=== PATIENT | male | born 1950 | race Caucasian/White ===

== ENCOUNTER 2018-09-29 11:32 | Outpatient (CLI) | payer MEDICARE, OTHER, SELFPAY ==
[2018-09-30 11:03] LABS: PSA, Screening 0.8 ng/ml (0-4.5)
== END 2018-09-29 11:52 ==
PROVIDERS: PCP Internal Medicine; Visit Provider Internal Medicine
DX: R35.1 Nocturia (principal)
CPT/HCPCS: 36415; 84153

== ENCOUNTER 2019-09-23 10:34 | Outpatient (CLI) | payer MEDICARE, OTHER, SELFPAY ==
[2019-09-23 12:51] LABS: Absolute Basophil Count 0.03 k/cumm (0.0-0.2); Absolute Eosinophil Count 0.15 k/cumm (0.0-0.7); Absolute Lymphocyte Count 1.15 k/cumm (1.2-3.4); Absolute Monocyte Count 0.42 k/cumm (0.11-0.7); Absolute Neutrophil Count 1.66 k/cumm (1.2-6.7); Basophils % 0.9; Eosinophils % 4.4; HGB 14.6 g/dL (13.5-17.5); Lymphocytes % 33.7; Mean Corpuscular Hemoglobin 30.8 pg (27.0-33.0); Mean Corpuscular Volume 90.7 fL (80-95); Mean Platelet Volume 10.9 fL (8.0-11.0); Monocytes % 12.3; Neutrophils % 48.7; Platelet Count 206 x1000/uL (130-400); RBC 4.74 m/cumm (4.50-6.00); RBC Distribution Width 12.2 % (11.8-14.1); White Blood Cell Count 3.41 k/cumm (4.4-10.8)
[2019-09-23 13:05] LABS: ALT 25 U/L (16-63); AST 17 U/L (15-37); Albumin 3.9 g/dL (3.4-5.0); Alkaline Phosphatase 55 U/L (46-116); Anion Gap 7.8 mmol/L (3-11); BUN 20 mg/dL (7-18); Bilirubin, Total 1.3 mg/dL (0.2-1.0); CO2 31.2 mmol/L (21.0-32.0); CREATININE 0.97 mg/dL (0.70-1.30); Calcium 9.1 mg/dL (8.5-10.1); Chloride 104 mmol/L (98-107); Glucose 79 mg/dL (74-106); Potassium 4.5 mmol/L (3.5-5.1); Sodium 143 mmol/L (136-145)
[2019-09-24 15:02] LABS: PSA, Screening 0.7 ng/mL (0.0-4.5)
== END 2019-09-23 10:54 ==
PROVIDERS: PCP Internal Medicine; Visit Provider Internal Medicine
DX: R50.9 Fever, unspecified (principal); R35.1 Nocturia; Z12.5 Encounter for screening for malignant neoplasm of prostate
CPT/HCPCS: 36415; 80053; 84153; 85025

== ENCOUNTER 2021-01-09 10:21 | Outpatient (CLI) | payer MEDICARE, OTHER, SELFPAY ==
--- NOTE | 2021-01-09 10:00 | DI.RAD_ITS ---
EXAM: XR KNEE LT 1V CLINICAL HISTORY: pain. TECHNIQUE: 2D digital imaging was performed. COMPARISON: CR LEFT KNEE 3 VIEW COMPLETE from 09/28/2013 FINDINGS: Single lateral view of the left knee performed with weight-bearing, compared to 09/28/2013. Degenerative changes appear to have further progressed. No prominent joint effusion seen. IMPRESSION: DATA REPOSITORY: RADIATION DOSE DELIVERED:
--- NOTE | 2021-01-09 10:00 | DI.RAD_ITS ---
EXAM: XR STANDING ALIGNMENT CLINICAL HISTORY: pain. TECHNIQUE: 2D digital imaging was performed. COMPARISON: CR LEFT KNEE 3 VIEW COMPLETE from 09/28/2013 FINDINGS: There is a moderate-advanced narrowing of the medial compartment of the left knee, somewhat similar t o 2013. There is a degenerative subarticular cyst again noted in the sub spinous tibial plateau whic h was also present in 2013. Lateral compartment of the left knee exhibits only mild degenerative zay nges and there are only mild degenerative changes noted in the opposite-right knee. Both hips appear unremarkable as do the ankles. No osseous lesions. IMPRESSION: Degenerative changes left knee. Similar in appearance to September 2013. DATA REPOSITORY: RADIATION DOSE DELIVERED:
== END 2021-01-09 10:22 | disposition home or self-care (01) ==
LOC: DIORS 10:22
PROVIDERS: PCP Nurse Practitioner; Referring Provider Nurse Practitioner; Visit Provider Student in an Organized Health Care Education/Training Program
DX: M17.12 Unilateral primary osteoarthritis, left knee (principal); M25.562 Pain in left knee
CPT/HCPCS: 20610; 99203; 73560; 77073; J1040

== ENCOUNTER → 2021-08-15 13:58 | Outpatient (BNVA) | payer MEDICARE, OTHER, SELFPAY | PROVIDERS: PCP Nurse Practitioner; Referring Provider Nurse Practitioner | DX: Z01.818 Encounter for other preprocedural examination (principal); M17.12 Unilateral primary osteoarthritis, left knee ==

== ENCOUNTER 2021-08-21 02:57 | Outpatient (CLI) | payer MEDICARE, OTHER, SELFPAY ==
[2021-08-21 10:02] LABS: HCT 43.3 % (40.0-50.0); HGB 14.3 g/dL (13.5-17.5); MCV 90.8 fL (80-95); MPV 10.3 fL (8.0-11.0); Platelet Count 212 10^3/uL (130-400); RBC 4.77 10^6/uL (4.36-5.78); RDW 11.8 % (11.8-14.1); RDW-SD 39.3 fL
[2021-08-21 10:59] LABS: Anion Gap 10.3 mmol/L (3-11); BUN 20 mg/dL (7-18); CO2 28.7 mmol/L (21.0-32.0); CREATININE 0.9 mg/dL (0.70-1.30); Calcium 9.3 mg/dL (8.5-10.1); Chloride 102 mmol/L (98-107); Glucose 78 mg/dL (74-106); Potassium 4.1 mmol/L (3.5-5.1); Sodium 141 mmol/L (136-145)
== END 2021-08-21 02:58 | disposition home or self-care (01) ==
LOC: LBO 02:57
PROVIDERS: PCP Nurse Practitioner; Visit Provider Student in an Organized Health Care Education/Training Program
DX: M17.12 Unilateral primary osteoarthritis, left knee (principal); Z01.818 Encounter for other preprocedural examination
CPT/HCPCS: 36415; 80048; 85027

== ENCOUNTER 2021-08-21 03:02 | Outpatient (CLI) | payer MEDICARE, OTHER, SELFPAY ==
[2021-08-21 12:43] LABS: Source Nasal/Nares
[2021-08-21 17:11] LABS: COVID-19 PCR Negative (Negative)
== END 2021-08-21 03:03 | disposition home or self-care (01) ==
LOC: LBO 03:02
PROVIDERS: PCP Nurse Practitioner; Visit Provider Student in an Organized Health Care Education/Training Program
DX: Z20.822 Contact with and (suspected) exposure to COVID-19 (principal)
CPT/HCPCS: 36415; 80048; 85027; 87635

== ENCOUNTER 2021-08-22 09:01 | Day surgery (SDC) | payer MEDICARE, OTHER, SELFPAY ==
[2021-08-22] VITALS (12 sets, daily range): BP systolic 105–158; BP diastolic 65–94; PULSE 62–96; RESP 13–16; TEMP 36.2–36.9; O2SAT 95–99; BMI 24.3
--- NOTE | 2021-08-22 07:30 | PDOC.DSDIS_ITS ---
Discharge Plan Disposition Patient Disposition: HOME Condition: Good Discharge Details Reason For Visit: Left TKA Attending Provider: Kong Villeda Primary Care Provider: Ximena Bustos Home Meds and New Rx's Prescriptions: New celecoxib [Celebrex] 200 mg capsule 200 mg PO BID Qty: 60 RF: 0 aspirin 81 mg tablet,delayed release (DR/EC) 81 mg PO BID Qty: 60 RF: 0 pantoprazole [Protonix] 40 mg tablet,delayed release (DR/EC) 40 mg PO DAILY Qty: 30 RF: 0 gabapentin 300 mg capsule 300 mg PO QHS Qty: 14 RF: 0 acetaminophen 500 mg capsule 1,000 mg PO Q8H PRN PRNQty: 90 RF: 0 oxycodone 5 mg tablet 5 mg PO Q4H PRNQty: 18 RF: 0 Continued omega-3 fatty acids [Fish Oil Concentrate] 1,000 mg capsule 1,000 mg PO DAILY RF: 0 multivitamin Tablet 1 tab PO DAILY RF: 0 Discharge Instructions Additional Instructions: Total Knee Discharge Instructions Activity: The most important activity is to walk. You should try to take short walks a few times a day. It is important that when resting you work on keeping the knee straight. Avoid putting a pillow behind the knee as this will encourage flexion. Work on range of motion exercises as provided by Physical Therapy. If you have the [employer] bike coming, this will be your primary tool for exercise after the knee replacement. You should use it and follow the directions for the knee. Utilize the other exercises sparingly based on your symptoms. - Start outpatient physical therapy within 2 weeks. - You should wear the LILY hose on both legs for 2 weeks. You may remove these at night. You may also use any compression sock in place of the LILY hose. - Utilize [employer] to review exercises, see videos on exercises and obtain basic information pertaining to your surgery and your recovery. Dressing: Remove the Damian wrap by 2 days after your surgery and put on the LILY stocking given to you from the hospital. Keep the surgical dressing (underneath the DAMIAN wrap) in place for at least one week. After the first week it may be removed and replaced with light gauze and tape or nothing. The wound and dressing may get wet after 3 days but avoid soaking the dressing or otherwise it will need to be changed. Many people prefer covering the dressing with cling wrap (saran wrap) to minimize it from getting soaked. If it gets wet, just pat dry. If it starts to peel off then it will need to be changed. Medications: - You should take Tylenol and anti-inflammatory Celebrex as your primary pain control medications. If the Celebrex is too expensive or not covered, please call the office for another alternative (Advil/Ibuprofen or Naproxen/Aleve) - You have been prescribed a stronger pain medication Oxycodone for breakthrough pain, take as needed as prescribed. - You have also been prescribed a stomach acid reduction agent Pantoprozole to help reduce stomach acid and reflux. - You have been prescribed Gabapentin to take at night for restlessness and nerve pain. - You will be taking Aspirin 81mg twice a day for DVT prevention unless instr ucted otherwise. - If you have constipation you should take Colace or Miralax (both [id number]). It takes most people 3-4 days to have a bowel movement. Follow-up: 2 weeks If you have any acute concerns or questions, please do not hesitate to contact the office at [phone]. You may contact Dr. Villeda with any questions after hours through the hospital at [phone] or on his cell phone at [phone]. Referrals: Kong Villeda MD [ [facility] STAFF PHYSICIAN] - Equipment/Supplies: Walker Activity:: Activity as Tolerated Remove Dressings/Wound Care:: Do Not Remove Shower/Bathe:: 72 hours Diet:: As Tolerated Discharge Orders Discharge Orders: Discharge Order (Routine); Ordered 08/22/21 Ordered By: Corine Perez DS: Diagnosis Discharge Diagnosis (1) Osteoarthritis of left knee: Status: Chronic
--- NOTE | 2021-08-22 08:10 | W.ANESPRE ---
General Info Date of Service Date Performed: 08/22/21 Height: 5 ft 10 in Weight: 76.884 kg Body Mass Index (BMI): 24.3 Surgical Procedure: Operation Date: 08/22/21 11:25 Proposed Procedures Side Surgeon p Knee Total Arthroplasty Left Kong Villeda MD Meds Allergies and Home Medications Allergies Allergy/AdvReac Type Severity Reaction Status Date / Time No Known Allergies Allergy Verified 08/22/21 09:25 Home Medication Medication Instructions Recorded multivitamin 1 tab PO DAILY 09/23/19 omega-3 fatty acids 1,000 mg 1,000 mg PO DAILY 09/23/19 capsule acetaminophen 1,000 mg PO Q8H PRN PRN #90 cap 08/22/21 aspirin 81 mg PO BID #60 tab 08/22/21 celecoxib [Celebrex] 200 mg PO BID #60 cap 08/22/21 gabapentin 300 mg PO QHS #14 cap 08/22/21 oxycodone 5 mg PO Q4H PRN #18 tab 08/22/21 pantoprazole [Protonix] 40 mg PO DAILY #30 tab 08/22/21 Current Visit Medications: Current Medications Generic Name Dose Route Start Last Admin Trade Name Freq PRN Reason Stop Dose Admin Acetaminophen 1,000 mg 08/22/21 06:00 Acetaminophen 500 Mg Tab PO 08/22/21 16:00 PREOP LUKE Acetaminophen 1,000 mg 08/22/21 09:00 Acetaminophen 500 Mg Tab PO TID LUKE Aspirin 81 mg 08/22/21 09:00 Aspirin E.C. 81 Mg Tabec PO BID LUKE Celecoxib 400 mg 08/22/21 06:00 Celecoxib 200 Mg Cap PO 08/22/21 16:00 PREOP LUKE Celecoxib 200 mg 08/22/21 09:00 Celecoxib 200 Mg Cap PO BID LUKE Docusate Sodium 100 mg 08/22/21 07:30 Docusate Sodium 100 Mg Cap PO BID PRN PRN Constipation Gabapentin 300 mg 08/22/21 06:00 Gabapentin 300 Mg Cap PO 08/22/21 16:00 PREOP LUKE Gabapentin 300 mg 08/22/21 22:00 Gabapentin 300 Mg Cap PO HS LUKE Hydromorphone HCl 0.5 mg 08/22/21 07:30 Hydromorphone 2 Mg/Ml Vial IVP Q2H PRN PRN Tranexamic Acid 1,000 mg/ 60 mls @ 360 mls/hr 08/22/21 06:00 Sodium Chloride IVPB 08/22/21 16:00 PREOP LUKE Tranexamic Acid 1,000 mg/ 60 mls @ 360 mls/hr 08/22/21 06:00 Sodium Chloride IVPB 08/22/21 16:00 DIRECTED LUKE Ringer's Solution 1,000 mls @ 80 mls/hr 08/22/21 06:00 IV 09/20/21 23:59 INFUSION LUKE Cefazolin Sodium/Dextrose 2 gm in 50 mls @ 100 mls/hr 08/22/21 06:00 Ancef Duplex IVPB 08/22/21 16:00 PREOP LUKE Cefazolin Sodium/Dextrose 1 gm in 50 mls @ 100 mls/hr 08/22/21 18:00 Ancef Duplex IVPB 08/23/21 10:29 Q8H LUKE IV Miscellaneous Supplies 1 each 08/22/21 06:00 Iv Access IV 09/20/21 23:59 DIRECTED LUKE Ondansetron HCl 4 mg 08/22/21 07:30 Ondansetron 4 Mg/2 Ml Vial IVP Q6H PRN PRN Nausea Oxycodone HCl 0 mg 08/22/21 07:30 Oxycodone 5 Mg Tab PO Q3H PRN PRN Pain Pantoprazole Sodium 40 mg 08/22/21 08:00 Pantoprazole 40 Mg Tabcr PO DAILY@0730 LUKE Sodium Chloride 0 ml 08/22/21 06:00 Normal Saline Flush 10 Ml Syr IV 09/20/21 23:59 PRN PRN Sodium Chloride 0 ml 08/22/21 06:00 Normal Saline 10 Ml Vial IJ 09/20/21 23:59 DIRECTED PRN Sterile Water 0 ml 08/22/21 06:00 Water,Injection,Sterile 10 Ml Vial IJ 09/20/21 23:59 DIRECTED PRN PFSH Active Problems Active Problems: Problem Status Onset Code Right shoulder pain M25.511 Osteoarthritis of left knee M17.12 Cardiac murmur R01.1 Sciatica M54.30 Medical History Active Problem List Right shoulder pain (Acute) Osteoarthritis of left knee (Chronic) Cardiac murmur (Acute) Sciatica (Acute) Medical History Diverticulosis of colon without diverticulitis Surgical History Surgical History Colonoscopy - MAC (10/23/11) Status post arthroscopy of left knee x2 Vasectomy Tobacco Smoking/Tobacco Use Status: Never Passive smoking exposure: Yes Second hand exposure: Yes Alcohol Alcohol Intake: current Alcohol intake frequency: 0-2 drinks per day Alcohol type: beer Substance Use Substance use: Never Substance use type: does not use Vital Signs and Lab Results Vital Signs Most Recent Vital Signs in EMR: Temp Pulse Resp BP Pulse Ox 36.9 C 82 16 142/94 H 99 08/22/21 09:10 08/22/21 09:10 08/22/21 09:10 08/22/21 09:10 08/22/21 09:10 Lab Results Blood Type / Crossmatch: No Data to Display Complete Blood Count: White Blood Count 4.00 10^3/uL (4.4-10.8) L 08/21/21 09:49 08/21/21 Red Blood Count 4.77 10^6/uL (4.36-5.78) 08/21/21 09:49 08/21/21 Hemoglobin 14.3 g/dL (13.5-17.5) 08/21/21 09:49 08/21/21 Hematocrit 43.3 % (40.0-50.0) 08/21/21 09:49 08/21/21 Platelet Count 212 10^3/uL (130-400) 08/21/21 09:49 08/21/21 Complete Metabolic Panel: Sodium Level 141 mmol/L (136-145) 08/21/21 09:49 08/21/21 Potassium Level 4.1 mmol/L (3.5-5.1) 08/21/21 09:49 08/21/21 Chloride Level 102 mmol/L (98-107) 08/21/21 09:49 08/21/21 Carbon Dioxide Level 28.7 mmol/L (21.0-32.0) 08/21/21 09:49 08/21/21 Blood Urea Nitrogen 20 mg/dL (7-18) H 08/21/21 09:49 08/21/21 Creatinine 0.9 mg/dL (0.70-1.30) 08/21/21 09:49 08/21/21 Estimated GFR/1.73 m2 >= 60.00 (mL/min/1.73m2) 08/21/21 09:49 08/21/21 Calcium Level 9.3 mg/dL (8.5-10.1) 08/21/21 09:49 08/21/21 Glucose Level 78 mg/dL (74-106) 08/21/21 09:49 08/21/21 Liver Function Panel: No Data to Display Coagulation Panel: No Data to Display Cardiac Panel: No Data to Display Arterial Blood Gas: No Data to Display Venous Blood Gas: No Data to Display Pancreas Panel: No Data to Display Thyroid Panel: No Data to Display Infectious Disease: Coronavirus (COVID-19)(PCR) Negative (Negative) 08/21/21 10:50 08/21/21 Coronavirus 2019 Source Nasal/Nares 08/21/21 10:50 08/21/21 Blood Cultures: No Data to Display Toxicology Panel: No Data to Display Imaging and Studies Imaging and Studies Study information below may be from another EMR and interpreted by another provider. Please see original notes in EMR for more complete details. EKG Summary: 08/06: sinus rhythm, multple PVCs, prob LVH. Anesthesia Assessment and Plan Anesthesia History Personal History: No History of Anesthesia Complications Family History: No Family History of Anesthesia Complications Exercise Tolerance Exercise Tolerance: Metabolic Equivalents>4 Pertinent Negatives Pertinent Negatives: No Symptoms of GERD, No Major Cardiovascular Symptoms or Complaints and No Major Pulmonary Symptoms or Complaints Cardiac & Pulmonary Exam Cardiac Exam: Normal S1/S2 Heart Sounds (Unable to auscultate heart murmur) Pulmonary Exam: Clear Bilateral Breath Sounds Implantable Cardiac Device Does patient have a Pacemaker or an ICD?: No Airway Exam Known Difficult Airway: No Mallampati Class: 1 Mouth Opening: Normal (> 3cm) Thyromental Distance: Greater than 3 cm Neck Range of Motion: Full ROM Neck Circumference: Normal Teeth Condition: Normal Dentition ASA Classification ASA Score: ASA 2 Emergency Case?: No NPO Status NPO Status: NPO Clears >2 hours, Solids >8 hours Anesthesia Plan Resuscitation Status: Full Code Anesthesia Technique: Spinal Anesthesia Airway Planned: Natural Airway Pain Management: Surgeon and patient request nerve block Monitors Used: Standard Monitors Preoperative Comments:: 70 yo male for TKA. Sig PMHx: occ EtOH, denies major health history problems.
[2021-08-22] MEDS: Acetaminophen 500 MG TAB 1000 MG PO (09:33)
[2021-08-22] MEDS: Gabapentin 300 MG CAP PO (09:33)
[2021-08-22] MEDS: Celecoxib 200 MG CAP 400 MG PO (09:33)
[2021-08-22] MEDS: Lactated Ringers 1,000 ML 80 ML IV (09:52)
--- NOTE | 2021-08-22 10:19 | W.ANESNERVE ---
Nerve Block Single Injection Procedure Date and Time Date Performed: 08/22/21 Procedure Start: 10:05 Location Where Procedure Performed Procedure Location: Day Surgery Unit Reason Performed: Postoperative Analgesia Requesting Provider: Christiana Timeout Performed Timeout Performed: Yes Monitoring Used ECG, Blood Pressure, SpO2 and See EMR for corresponding vital signs Sterility Sterility: Hand Hygiene, Surgical Cap, Surgical Mask, Sterile Gloves, Eye Protection and Chlorhexidine Sedation Given During Procedure Sedation Given (Indicate Dose Given): No Sedation given Patient Mental Status Patient Mental Status: Awake Nerve Block 1st Nerve Block: Laterality: Left Block Type: Adductor Canal Needle / Catheter Used: 100mm SonoPlex II Local Anesthetic Bolus (Indicate Dose Given): Injected in 3-5ml increments after negative blood aspiration and Bupivacaine 0.375% Dose:: 10mL Additives (Indicate Dose Given): None Ultrasound: Sterile probe cover and gel used Ultrasound Image Saved?: Yes Nerve Stimulator: Not Used Paresthesia: None Procedure Tolerated: No Complications Procedure Outcome: Successful Performed By: Shannon Live
[2021-08-22] MEDS: ceFAZolin 2 GM/50 ML BAG IVPB (10:21)
[2021-08-22] MEDS: Bupivacaine 0.25% Pres-Free 30 ML VIAL (10:51)
[2021-08-22] MEDS: Ketorolac 30 MG/ML VIAL (10:52)
--- NOTE | 2021-08-22 12:16 | W.PM.OP ---
Date of service: 08/22/21 Time of Service: 12:17 Operative Note Operative Note DATE OF PROCEDURE: 08/22/21 PRE-OP DIAGNOSIS: Left Knee Osteoarthritis POST-OP DIAGNOSIS: same PROCEDURE: Left Total Knee Replacement SURGEON: Kong Villeda UNDERGROUND MINE MACHINERY MECHANIC: Corine Perez ANESTHESIA TYPE: Spinal Refer to Anesthesia Record ESTIMATED BLOOD LOSS: 300 PATHOLOGY: none sent TOURNIQUET TIME: 0 COMPLICATIONS: None Patient was transported to: PACU Patient's condition: stable Implants: 1. Depuy Attune Cementless Cruciate Retaining Femoral Component, Size 6 2. Depuy Attune Cementless Rotating Platform Tibial Component, Size 6 3. Depuy Attune 6x5mm CR/RP Poly 4. Depuy Attune Patellar Component, Size 41mm Indications: I have seen Norman in clinic for symptoms of knee arthritis, confirmed with radiographic findings. He has exhausted nonoperative methods and was having significant limitations in daily function and desired better function and less pain. I discussed the technical details of a knee replacement. I explained the risks of the procedure to include, but not limited to, bleeding, infection, pain, stiffness, fracture, damage to nerves and vessels, damage to muscles and tendons, loosening, need for repeat procedure, blood clot and cardiopulmonary demise. Despite these risks, Norman elected to proceed. Findings: There was significant signs of arthritis throughout the knee, mostly medial. There were large impinging osteophytes about the posterior-medial tibia. Procedure Description: Norman was greeted in the preoperative holding area where the correct side was identified and marked. The consent was reviewed with the patient and signed. The history and physical was updated. All questions were answered. Preoperative medications were administered: Acetaminophen 1000mg, Celebrex 400mg, and Gabapentin 300mg. An adductor canal block was then administered by the anesthesia team in the PACU. He was taken back to the operating room. A spinal anesthestic was then administered. The patient was placed into the supine position on the operating room table. A nonsterile tourniquet was placed high onto the leg but only used for cementing. Posts were placed for positioning during the procedure. All bony prominences were well padded. Prophylactic antibiotics in the form of Cefazolin were administered. 1g of Tranxemic Acid was given intravenously within 30 minutes of incision. The left leg was then prepped with Chloraprep and draped in a standard fashion with impervious stockinette. A second prep with Chloraprep was performed prior to application of Iodine impregnated skin protection. A timeout to confirm correct identity, side and site, procedure, allergies, anesthesia, and medical concerns was performed. With the knee in some flexion, a midline incision was made overlying the knee. Full thickness skin flaps were raised once the extensor mechanism was encountered. These were raised medially and laterally. Any bleeding was controlled with electrocautery. Once the extensor mechanism was fully exposed, a medial parapatellar arthrotomy was performed in a flexed position. All bleeding from the arthrotomy and the geniculate arteries was coagulated. A medial subperiosteal peel was performed with electrocautery to the midcoronal plane. The fat pad was removed while keeping the patellar tendon protected. The anterior distal femur synovium was removed for later visualization. The ACL and PCL were resected and the anterior horn of the lateral meniscus was transected. The knee was then flexed with the patella everted. Large osteophytes from the tibia were removed. Large osteophytes from the femur were removed. Using a step drill, and based on preoperative templating, the femoral canal was entered. This was done with a step drill without any difficulty. The intramedullary distal femoral cut guide was inserted, set to a 5 degree valgus cut and 8mm cut thickness. The distal femoral cut guide was then held in position and pinned. With the soft tissues protected, the distal cut was performed. This was passed over a few times to ensure a planar cut. I then turned attention to the tibia. The extramedullary guide was placed onto the leg. The distal aspect was slid medial to adjust for position of center of ankle and stay in line with shaft of the tibia. Approximately 3-5 degrees of posterior slope was kept in the proximal cutting guide. The center of the guide was aligned with the PCL. The stylus was used to assess cut thickness. The medial side, most involved side, was set for a 3mm cut. This was then held in position and pinned into place with 2 additional pins and a cross pin for stability. The medial and lateral collateral ligaments were protected and the cut was performed. With this completed, it was assessed and noted to be of appropriate dimensions. The guide was removed. A spacer block was inserted and the knee was brought into extension. The 5mm spacer block provided full extension, without hyperextension and with stability of both the medial and lateral collateral ligaments was assessed. The pins from the femur and the tibia were then removed. The distal femur was then sized. The anterior stylus was placed onto the lateral ridge of the anterior femur. This indicated a size 6 femur. The external rotation of the guide was adjusted to 3 degrees to match the epicondylar axis, perpendicular to Malathi?s line. The 4-in-1 cutting guide was the placed. The posterior medial femur cut was evaluated and appeared of good thickness. The spacer block was inserted underneath the cutting guide and stability was confirmed in 90 degrees of flexion. An mckenzie wing was used to confirm appropriate position of the anterior cut to avoid notching. This cutting guide was ensured to be flush on the cut surface and then pinned into place with headed pins. While protecting the soft tissues, quad tendon, and collateral ligaments, the anterior and posterior cuts were performed with a saw. The central two pins were removed and the posterior and anterior chamfers were cut next. The notch-cutting guide was placed. This was pinned to lateralize the femoral component as much as possible while keeping it flush on the cut surface. This was then pinned into position. A reciprocating saw was used to make the notch cut. A rasp smoothed the cut surfaces. The medial and lateral menisci were removed. A trial femoral component was then inserted, impacted down to the cut surfaces, and the lug holes were drilled. A provisional trial tibial component was placed and the knee was brought through range of motion. There was noted to be excellent extension and flexion. There was no significant instability. The patella was tracking without thumbs. A size 5mm polyethylene component provided the best range of motion and stability with less than 2mm gapping with medial and lateral stress and full extension without significant hyperextension. The tibial cut surface was fully exposed. The tibia was then sized as a 6. The tibia had been previously marked during trialing to correspond to the center of the tibial component to help with rotation. The trial was aligned to this jose, approximately rotated to the medial 1/3rd of the tibial tubercle. The trial was pinned into place. The tibia was prepared with a reamer and a keel punch and lug holes. The knee was then brought into extension and the patella was measured as 31mm. Using the patellar clamp and cut guide, this was resected to a flat surface with at least 13mm of thickness remaining. The size 41 patella fit the best. This was oriented and then clamped into position. The lugs were drilled. The trial components were removed. The final components were opened on the back table. The periosteal and capsular tissues, especially posteriorly, around the knee were then systematically injected with a periarticular cocktail consisting of 50cc 0.25% Marcaine, 30mg Ketorolac, 20cc of Exparal and 50cc of injectable saline. The knee was thoroughly irrigated with a pulse lavage and dried. Irrisept was also used to irrigate the tissues. On the back table, with the implants opened, the cement was mixed. One batch of high viscosity cement was prepared with vacuum assistance. After the cement was ready a small amount was placed on the cut surface of the patella and the patellar button was clamped into position and held. While the cement was hardening, the cementless knee components were placed. Starting with the tibial component, the tibia was subluxed anteriorly and the lug holes of the component were lined up. The tibia was then impacted with an impactor and mallet until the tibial component was in contact with the tibia. The final polyethylene component was inserted. Then, the femoral component was inserted. The lug holes were aligned and the component was impacted into position. The knee was irrigated with Irrisept chlorhexadine solution. This was allowed to sit in the knee for 3 minutes. After the cement had finally cured, approximately 15min, the clamp was removed from the patella and the knee was taken through range of motion. The patella was tracking with a no-thumbs technique. The capsule was then reapproximated with a No. 1 Vicryl at multiple locations. The capsule was finally closed with a No. 2 Stratafix, barbed suture. The second dosing of 1g TXA was started. Deep tissues were then reapproximated with 0 Vicryl and 2-0 Vicryl. The skin was closed with a running 3-0 Monocryl in a subcuticular fashion. This was reinforced with skin glue. A Mepilex silver dressing was applied along with a [id number] HAL wrap. A CryoCuff was applied. Norman was transferred to the hospital bed without difficulty an suffering no apparent complication. Norman has a good prognosis. Physical therapy will start today and without restrictions, weight-bearing as tolerated. Aspirin 81mg BID will be used for DVT prophylaxis.
[2021-08-22] MEDS: fentaNYL 100 MCG/2 ML VIAL IVP ×2 (12:50→12:55)
--- NOTE | 2021-08-22 13:04 | W.ANESPOSTOP ---
Postoperative Evaluation Date, Time and Location Date Performed: 08/22/21 Time Performed: 13:05 Patient Location: PACU Vital Signs Most Recent Imported Vital Signs: Most Recent Vital Signs Temp Pulse Resp BP Pulse Ox 36.5 C 62 16 127/80 97 08/22/21 12:55 08/22/21 12:55 08/22/21 12:55 08/22/21 12:55 08/22/21 12:55 Pain Score Most Recent Pain Score: Most Recent Pain Score Pain Level 5 08/22/21 12:55 Assessment Mental Status: Awake (Alert & Oriented to Patient Baseline) Airway and Respiratory Function: Patent airway with normal (patient baseline) respiratory exam Cardiovascular Function: Hemodynamically Stable Hydration Status: Adequately Hydrated Nausea & Vomiting: No Nausea or Vomiting Pain: Pain is tolerable per patient Peripheral Nerve Block: Regional nerve block not resolved at time of post operative discharge
--- NOTE | 2021-08-22 14:10 | PT.INIE ---
Date of service: 08/22/21 Time of Service: 14:10 PT Notes Visit Reasons: Left TKA Physical Therapy Day Surgery Initial Evaluation Date: 08/22/2021 Referring Doctor: HOWARD Grigsby PT Orders: PT CONSULT: Status post Ortho surgery Precautions: WBAT on left LE with AD. Patient Profile/Admitting Diagnosis: Norman is a 70-year-old male with osteoarthritis of the left knee and is status post left total knee arthroplasty on postoperative day 0. PMHX: Active Problem List Right shoulder pain (Acute) Osteoarthritis of left knee (Chronic) Cardiac murmur (Acute) Sciatica (Acute) Medical History Diverticulosis of colon without diverticulitis Surgical History Colonoscopy - MAC (10/23/11) Status post arthroscopy of left knee x2 Vasectomy Social History/Home Situation: Lives with in a private home with 10 steps to enter through the garage with a rail on the right side going up. Independent with all aspects of ADLs prior to surgery. Retired forester. Equipment Owned/DME: None Subjective: Agreeable to PT consult. Reports mildly in the left knee. Complained of fatigue right after ambulation activity. Objective: General Observation: Supine on stretcher. HAL wraps to left LE. Cryo/Cuff to left knee. IV in right UE. LILY stocking on the right leg. Mental Status: Alert and oriented x4 Pain: 1?2/10 pain in the left knee. ROM: Right Lower Extremity: Hip flexion WFL. Hip abduction WFL. Knee flexion WFL. Ankle dorsiflexion WFL. Ankle plantarflexion WFL. Left Lower Extremity: Hip flexion WFL. Hip abduction WFL. Knee flexion 20 degrees to 90 degrees. Knee extension -20 degrees ankle dorsiflexion WFL. Ankle plantarflexion WFL. Strength: Right Lower Extremity: Hip flexors 5/5. Hip abductors 5/5. Knee flexors 5/5. Knee extensors 5/5. Ankle dorsiflexors 5/5. Ankle plantarflexors 5/5. Left Lower Extremity:Hip flexors 4/5. Hip abductors 4/5. Knee flexors 3-/5. Knee extensors 3-/5. Ankle dorsiflexors 5/5. Ankle plantarflexors 5/5. Sensation: Denies numbness and tingling throughout B LE. Intact as to pain and light pressure in bilateral lower extremities. Bed Mobility/Transfers: Supine to sit supervision Sit to stand standby assist Stand to sit standby assist Bed to chair standby assist Gait: Instructed patient with level surface ambulation of 150 feet using front wheeled walker with step through gait pattern requiring only standby assist with report of mild ache on the left knee and fatigue at end of activity. No LOB. No SOB. Denies chest pain, headache, and lightheadedness throughout session. Nurse Corine providing wheelchair follow for safety. Stairs: Negotiated 6 x 4 inch steps and 4 x 6 inch steps while holding onto 1 rail and using a single-point cane with the other hand requiring step- to gait pattern and contact-guard assist of PT. Nurse Pool providing standby assist for safety. Balance: Static Sitting: Normal Dynamic Sitting: Normal Static Standing: Fair Dynamic Standing: Fair Special Tests: Mobility Limitations Standardized Measure [facility] 6 clicks Basic Mobility Inpatient Short Form: Raw Score: 23 CMS Score: 11% deficit Informed Consent/Education: Patient instructed in purpose of PT consult. Education and training on initial set of exercises that can be done at home have been completed with patient, also advised about maximizing use of postoperative exercises on the [employer] deanna on his smartphone. Assessment: Neuro requires the use of a front wheeled walker for all mobility ADL performance to reduce fall risk and maximize independence. He will have the support of his Angel as he recovers. Patient presents with clinical signs and symptoms consistent with current/admitting diagnoses that have resulted to mobility limitations, gait instability, and postoperative weakness as demonstrated by the following impairment level findings: 1. Decreased strength to left knee major muscle groups 2. Impaired standing balance 3. Limitation of joint range of motion in left knee Impairments are contributing to the following functional limitations: 1. Inability to safely ambulate without assistive device 2. Increase completion time for mobility ADL performance 3. Increased fall risk Patient is assessed as a 84383 moderate complexity based on the following: History: 62-year-old male with impairment level findings, functional limitations, and past medical history as indicated above Examination: Demonstrable impairment in strength, balance, and mobility level with underlying impairments and functional limitations as documented above Presentation: Evolving Decision Makin moderate complexity Goals: N/A. PT evaluation and 1-2 treatment sessions only for functional mobility training using recommended AD and for HEP instruction. Plan of Care/Treatment Plan: N/A. PT evaluation and 1-2 treatment session only for functional mobility training using recommended AD and for HEP instruction. DISCHARGE RECOMMENDATIONS: [] Home with no services [] [X] Home with services. Home when medically cleared by orthopedic surgeon. Outpatient services to facilitate to premorbid independent mobility level in the community without an assistive device. [] Home with outpatient PT [] [] SNF for continued rehabilitation [] [] Sports Doctor Care [] [] SNF versus LTC based on ability to participate and progress [] TREATMENT CODE/TIME: 9716 2 x 20 minutes, 64232 x 23 minutes beginning at 14:10 PM. Thank you for the opportunity to participate in the care of this patient.
== END 2021-08-22 15:41 | disposition home or self-care (01) ==
LOC: SUR 09:01
PROVIDERS: PCP Nurse Practitioner; Visit Provider Student in an Organized Health Care Education/Training Program
PROC: (CPT 27447; principal; 2021-08-22 11:15)
DX: M17.12 Unilateral primary osteoarthritis, left knee (principal)
CPT/HCPCS: 27447; 76942; 97162; 97530; J0690; J1100; J1885; J2405; J3010

== ENCOUNTER 2021-09-04 15:02 | Outpatient (CLI) | payer MEDICARE, OTHER, SELFPAY ==
--- NOTE | 2021-09-04 13:45 | DI.RAD_ITS ---
Exam(s) XR KNEE LT 1V XR STANDING ALIGNMENT EXAM: XR STANDING ALIGNMENT CLINICAL HISTORY: s/p TKA. TECHNIQUE: 2D digital imaging was performed of the left knee. Five images were obtained. Leg lengt h and lateral left knee views were obtained. COMPARISON: CR XR STANDING ALIGNMENT from 01/09/2021 CR XR KNEE LT 1V from 01/09/2021 FINDINGS: BONES: Mild degenerative changes are seen in the hips. The right knee is well maintained. There is a left total knee replacement. The orthopedic hardware appears in good position. There is an enthe sophyte at the superior patella. The ankles are well maintained. There is no significant leg length discrepancy. SOFT TISSUE: Atherosclerosis is present. There is soft tissue swelling anterior to the left knee. IMPRESSION: Left total knee replacement. DATA REPOSITORY: RADIATION DOSE DELIVERED:
== END 2021-09-04 15:03 | disposition home or self-care (01) ==
LOC: DIORS 15:03
PROVIDERS: PCP Nurse Practitioner; Referring Provider Nurse Practitioner; Visit Provider Student in an Organized Health Care Education/Training Program
DX: M17.12 Unilateral primary osteoarthritis, left knee (principal); Z47.1 Aftercare following joint replacement surgery; Z96.652 Presence of left artificial knee joint
CPT/HCPCS: 73560; 77073

== ENCOUNTER 2021-09-07 11:58 | Outpatient (CLI) | payer MEDICARE, OTHER, SELFPAY ==
--- NOTE | 2021-09-07 11:15 | DI.US_ITS ---
Exam(s) US LOWER EXTREMITY VENOUS LT EXAM: US LOWER EXTREMITY VENOUS LT CLINICAL HISTORY: ? DVT M79.605 PAIN LT LEG. TECHNIQUE: Lower extremity venous ultrasound performed using grayscale, color-flow, and spectral Do ppler analysis. COMPARISON: CR XR KNEE LT 1V from 01/09/2021 CR XR KNEE LT 1V from 09/04/2021 FINDINGS: The common femoral, femoral and popliteal veins demonstrate normal compressibility, augmentation, and color Doppler. The posterior tibial veins are patent. No saphenous vein thrombosis or other superfi cial venous thrombosis is seen. There is a complex Liang's cyst measuring 4.6 x 2.1 cm. IMPRESSION: Complex Liang's cyst.. No evidence of DVT. DATA REPOSITORY:
== END 2021-09-07 12:18 ==
PROVIDERS: PCP Nurse Practitioner; Visit Provider Student in an Organized Health Care Education/Training Program
DX: M79.605 Pain in left leg (principal); M71.22 Synovial cyst of popliteal space [Baker], left knee
CPT/HCPCS: 93971

== ENCOUNTER → 2021-10-02 14:56 | Outpatient (BNVA) | payer MEDICARE, OTHER, SELFPAY | PROVIDERS: PCP Nurse Practitioner; Referring Provider Nurse Practitioner | DX: Z47.1 Aftercare following joint replacement surgery (principal); M17.12 Unilateral primary osteoarthritis, left knee; Z96.652 Presence of left artificial knee joint ==

== ENCOUNTER 2021-11-02 02:39 | Outpatient (CLI) | payer MEDICARE, OTHER, SELFPAY ==
[2021-11-02 10:31] LABS: Calculated LDL 105 mg/dL (<100); Cholesterol 177 mg/dL (<200); HDL Cholesterol 60 mg/dL (40-60); Triglyceride 61 mg/dL (<150)
[2021-11-02 22:31] LABS: PSA, Screening 0.8 ng/mL (0.0-4.5)
== END 2021-11-02 02:40 | disposition home or self-care (01) ==
LOC: LBO 02:39
PROVIDERS: PCP Nurse Practitioner; Visit Provider Nurse Practitioner
DX: Z13.6 Encounter for screening for cardiovascular disorders (principal); R97.20 Elevated prostate specific antigen [PSA]; Z12.5 Encounter for screening for malignant neoplasm of prostate
CPT/HCPCS: 36415; 80061; 84153

== ENCOUNTER → 2021-11-13 13:44 | Outpatient (BNVA) | payer MEDICARE, OTHER, SELFPAY | PROVIDERS: PCP Nurse Practitioner; Referring Provider Nurse Practitioner; Visit Provider Student in an Organized Health Care Education/Training Program | DX: Z96.652 Presence of left artificial knee joint (principal); M17.12 Unilateral primary osteoarthritis, left knee ==

== ENCOUNTER → 2022-08-14 14:23 | Outpatient (BNVA) | payer MEDICARE, OTHER, SELFPAY | PROVIDERS: PCP Nurse Practitioner Family; Referring Provider Nurse Practitioner; Visit Provider Surgery | DX: Z12.11 Encounter for screening for malignant neoplasm of colon (principal) ==

== ENCOUNTER 2022-08-20 09:39 | Day surgery (SDC) | payer MEDICARE, OTHER, SELFPAY ==
--- NOTE | 2022-08-20 06:40 | W.COLOREPORT ---
Date of service: 08/20/22 Time of Service: 12:16 Colonoscopy Report Date of procedure: 08/20/22 Pre-op diagnosis general: Colon Cancer screening Post-op diagnosis procedure note: other (diverticulosis) Procedure: Colonoscopy Surgeon: Cris Choudhury Anesthesia Type: General:No Airway Estimated blood loss (mL): 0 Pathology: none sent Complications: None Disposition: same day Indications: The patient? is a pleasant? 71-year-old male who is here to discuss another screening colonoscopy. ? His last colonoscopy was in 2011 and was normal.? He denies any changes in bowel habits, melena, hematochezia, unintentional weight loss or family history of colon cancer.? The procedure and risks were discussed.? The prep was reviewed in detail.? Risks, benefits and complications have been reviewed. Complications include but are not limited to bleeding, pain, perforation, missed small lesion/polyp, sore throat, aspiration and adverse reaction to the medications. Questions were entertained and answered to their satisfaction and they wished to proceed. No guarantees were given or implied. Prep: Miralax/Dulcolax Procedure Start Time: 12:16 Procedure End Time: 12:31 Retraction Time: 8 minutes Findings: diverticulosis Procedure Description: After informed consent was obtained the patient was taken to the procedure room and placed in a left decubitous position. Monitors were applied and a time out was done. The patients name, date of , procedure, allergies to medications and metal in their body was reviewed. The patient was then sedated. Once sedated and comfortable a rectal exam was done. External exam was normal. Internal exam revealed a normal sphincter tone and no palpable masses. The prostate felt smooth. The scope was then introduced and retro-flexed. No internal hemorrhoids, polyps or masses were identified on retro-flexion. The scope was then advanced to the cecum without difficulty. The ileocecal vlave and appendiceal orifice were identified. The prep was good. The scope was then slowly retracted over 8 minutes back into the rectum. There were no polyps. There was mild sigmoid diverticulosis noted. The scope was removed and the patient was woken up and taken back to Same day surgery in stable condition. The patient tolerated the procedure well and there were no immediate complications. Follow up: The patient should follow up in 10 years unless they develop changes in bowel habits or other new gastrointestinal complaints.
--- NOTE | 2022-08-20 06:41 | W.PM.DSUDISC ---
Date of service: 08/20/22 Time of Service: 12:35 Discharge Plan Disposition Patient Disposition: HOME Condition: Good Discharge Details Reason For Visit: colonoscopy Attending Provider: Cris Choudhury Primary Care Provider: Jeannie Wang Home Meds and New Rx's Prescriptions: Continued omega-3 fatty acids [Fish Oil Concentrate] 1,000 mg capsule 1,000 mg PO DAILY multivitamin Tablet 1 tab PO DAILY Discontinued bisacodyl [Dulcolax (bisacodyl)] 5 mg tablet,delayed release (DR/EC) 5 mg PO ONCE Qty: 4 0RF Rx Instructions: Take according to provider's instructions for colonoscopy prep. polyethylene glycol 3350 17 gram/dose powder 17 g PO ONCE Qty: 238 0RF Rx Instructions: To be taken as directed by prescriber's office for colonoscopy prep. Discharge Instructions Instructions: Diverticulosis (DC) Additional Instructions: Findings: diverticulosis Follow up: 10 years Please call if you develop: fevers >101.5 Nausea or Vomiting Abdominal pain that is not transient Rectal bleeding that is more then a tbsp A hard abdomen and inability to pass gas DAY SURGERY UNIT POST ENDOSCOPY INSTRUCTIONS Instructions for everyone who is given Anesthesia: For your safety, please do the following for the next 24 Hours: a. Do not drive or operate dangerous equipment b. Do not drink alcohol beverages or use any recreational drugs for the first 24 hours or while taking pain medications. The medications in your body may have a reaction that can be dangerous. c. Do not make any important decisions or sign any important papers 1. Generally there are no restrictions on your activity after a day or so has gone by, but you may feel a bit fatigued for a few days. 2. After you arrive home you may have a light meal and return to a normal diet as you can tolerate it without feeling sick to your stomach. 3. After surgery, you may feel pain or discomfort. This should be only transient, but if it persists please contact your doctor. 4. If there are any questions regarding the findings of your procedure, please feel free to contact your doctor. 6. If you are unable to contact your doctor with a problem, contact the hospital at [phone]. 7. Continue all your regular medications unless directed otherwise. I understand the above instructions and have no questions. Signature of Patient or Responsible Adult Escort Date/Time Name of Responsible Adult Escort Signature of Nurse Date/Time Activity:: Activity as Tolerated Equipment/Supplies:: No Equipment Needed Diet:: high fiber diet
[2022-08-20 10:18] VITALS: BP 142/77; PULSE 71; RESP 16; TEMP 36.3; O2SAT 96
[2022-08-20] MEDS: Lactated Ringers 1,000 ML 80 ML IV (10:50)
--- NOTE | 2022-08-20 11:15 | W.ANESPRE ---
General Info Date of Service Date Performed: 08/20/22 Height: 6 ft Weight: 74.4 kg Body Mass Index (BMI): 22.2 Surgical Procedure: Operation Date: 08/20/22 11:20 Proposed Procedure Side Surgeon p Colonoscopy Cris Choudhury MD Meds Allergies and Home Medications Allergies Allergy/AdvReac Type Severity Reaction Status Date / Time No Known Allergies Allergy Verified 08/20/22 10:22 Home Medication Medication Instructions Recorded multivitamin 1 tab PO DAILY 09/23/19 omega-3 fatty acids 1,000 mg 1,000 mg PO DAILY 09/23/19 capsule (Fish Oil Concentrate) bisacodyl 5 mg tablet,delayed 5 mg PO ONCE #4 tabs 08/14/22 release (Dulcolax (bisacodyl)) polyethylene glycol 3350 17 17 g PO ONCE #238 grams 08/14/22 gram/dose oral powder Current Visit Medications: Current Medications Generic Name Dose Route Start Last Admin Trade Name Freq PRN Reason Stop Dose Admin Hyoscyamine Sulfate 0.125 mg 08/20/22 06:42 Hyoscyamine 0.125 Mg Sl/Oral/Chew SL DIRECTED PRN Ringer's Solution 1,000 mls @ 80 mls/hr 08/20/22 06:00 08/20/22 10:50 IV 09/16/22 23:59 80 mls/hr INFUSION LUKE Administration IV Miscellaneous Supplies 1 each 08/20/22 06:00 Iv Access IV 09/16/22 23:59 DIRECTED LUKE Ondansetron HCl 4 mg 08/20/22 06:42 Ondansetron 4 Mg/2 Ml Vial IVP Q4H PRN PRN Nausea / Vomiting Sodium Chloride 0 ml 08/20/22 06:00 Normal Saline Flush 10 Ml Syr IV 09/16/22 23:59 PRN PRN Sodium Chloride 0 ml 08/20/22 06:00 Normal Saline 10 Ml Vial IJ 09/16/22 23:59 DIRECTED PRN Sterile Water 0 ml 08/20/22 06:00 Water,Injection,Sterile 10 Ml Vial IJ 09/16/22 23:59 DIRECTED PRN PFSH Active Problems Active Problems: Problem Status Onset Code Cardiac murmur R01.1 Restless leg G25.81 Medical History Medical History (Updated 08/20/22 @ 10:24 by Louisa Dior) Diverticulosis of colon without diverticulitis No pertinent past medical history Medical History Comments:: pt. reports black today 0615. Pt. reports more indigestion recently after coffee/ milk consumptions, but not every time Surgical History Surgical History Colonoscopy - MAC (10/23/11) History of total left knee replacement (08/22/21) DOS 08/22/21 S/P vasectomy Status post arthroscopy of left knee x2 Tobacco Smoking/Tobacco Use Status: Never Passive smoking exposure: Yes Second hand exposure: Yes Alcohol Alcohol Intake: current Alcohol intake frequency: a few times a week Alcohol type: beer Substance Use Substance use: Never Substance use type: former substance user and marijuana Details: alcohol: t-3, 2 beers Vital Signs and Lab Results Vital Signs Most Recent Vital Signs in EMR: Most Recent Vital Signs Temp Pulse Resp BP Pulse Ox 36.3 C L 71 16 142/77 H 96 08/20/22 10:18 08/20/22 10:18 08/20/22 10:18 08/20/22 10:18 08/20/22 10:18 Lab Results Blood Type / Crossmatch: No Data to Display Complete Blood Count: No Data to Display Complete Metabolic Panel: No Data to Display Liver Function Panel: No Data to Display Coagulation Panel: No Data to Display Cardiac Panel: No Data to Display Arterial Blood Gas: No Data to Display Venous Blood Gas: No Data to Display Pancreas Panel: No Data to Display Thyroid Panel: No Data to Display Infectious Disease: No Data to Display Blood Cultures: No Data to Display Toxicology Panel: No Data to Display Imaging and Studies Imaging and Studies Study information below may be from another EMR and interpreted by another provider. Please see original notes in EMR for more complete details. EKG Summary: 08/06: Sinus Rhythm, multple PVCs, prob LVH. Anesthesia Assessment and Plan Anesthesia History Personal History: No History of Anesthesia Complications Family History: No Family History of Anesthesia Complications Exercise Tolerance Exercise Tolerance: Metabolic Equivalents>4 Pertinent Negatives Pertinent Negatives: No Symptoms of GERD (Patient reports no active symptoms today and never has periods of GERD where acid comes up to his mouth.), No Major Cardiovascular Symptoms or Complaints and No Major Pulmonary Symptoms or Complaints Cardiac & Pulmonary Exam Cardiac Exam: Normal S1/S2 Heart Sounds Pulmonary Exam: Clear Bilateral Breath Sounds Implantable Cardiac Device Does patient have a Pacemaker or an ICD?: No Airway Exam Known Difficult Airway: No Mallampati Class: 1 Mouth Opening: Normal (> 3cm) Thyromental Distance: Greater than 3 cm Neck Range of Motion: Full ROM Neck Circumference: Normal Teeth Condition: Normal Dentition ASA Classification ASA Score: ASA 2 Emergency Case?: No NPO Status NPO Status: NPO Clears >2 hours, Solids >8 hours Anesthesia Plan Resuscitation Status: Full Code Anesthesia Technique: General Anesthesia Airway Planned: Natural Airway Monitors Used: Standard Monitors
[2022-08-20 11:18] VITALS: BMI 22.2
[2022-08-20 12:35] VITALS: BP 96/60; PULSE 72; RESP 16; TEMP 36.5; O2SAT 95
[2022-08-20 12:57] VITALS: BP 108/76; PULSE 67; RESP 16; TEMP 36.5; O2SAT 97
--- NOTE | 2022-08-20 14:01 | W.ANESPOSTOP ---
Postoperative Evaluation Date, Time and Location Date Performed: 08/20/22 Time Performed: 13:15 Patient Location: Day Surgery Unit Vital Signs Most Recent Imported Vital Signs: Most Recent Vital Signs Temp Pulse Resp BP Pulse Ox 36.5 C 67 16 108/76 97 08/20/22 12:57 08/20/22 12:57 08/20/22 12:57 08/20/22 12:57 08/20/22 12:57 Pain Score Most Recent Pain Score: Most Recent Pain Score Pain Level 0 08/20/22 12:35 Assessment Mental Status: Awake (Alert & Oriented to Patient Baseline) Airway and Respiratory Function: Patent airway with normal (patient baseline) respiratory exam Cardiovascular Function: Hemodynamically Stable Hydration Status: Adequately Hydrated Nausea & Vomiting: No Nausea or Vomiting Pain: Pt. Denies Any Pain Peripheral Nerve Block: Patient did not receive a nerve block
== END 2022-08-20 13:28 | disposition home or self-care (01) ==
PROVIDERS: PCP Nurse Practitioner Family; Visit Provider Surgery
PROC: 0DJD8ZZ Inspection of Lower Intestinal Tract, Via Natural or Artificial Opening Endoscopic (ICD-10-PCS; CPT 45378; principal; 2022-08-20 11:15)
DX: Z12.11 Encounter for screening for malignant neoplasm of colon (principal); K57.30 Diverticulosis of large intestine without perforation or abscess without bleeding
CPT/HCPCS: G0121

== ENCOUNTER 2022-08-31 10:51 | Outpatient (CLI) | payer MEDICARE, OTHER, SELFPAY ==
--- NOTE | 2022-08-31 11:07 | DI.RAD_ITS ---
Exam(s) XR KNEE LT 2V AP,LAT EXAM: XR KNEE LT 2V AP,LAT CLINICAL HISTORY: left nee f/u. TECHNIQUE: 2D digital imaging was performed. COMPARISON: CR XR KNEE LT 1V from 09/04/2021 FINDINGS: Two views: Is stable position alignment the components of knee prosthesis. No fracture nor loosening evident. IMPRESSION: Satisfactory stable appearance. DATA REPOSITORY: RADIATION DOSE DELIVERED:
== END 2022-08-31 10:52 | disposition home or self-care (01) ==
LOC: DIORS 10:52
PROVIDERS: PCP Nurse Practitioner Family; Referring Provider Nurse Practitioner Family; Visit Provider Student in an Organized Health Care Education/Training Program
DX: M76.32 Iliotibial band syndrome, left leg (principal); Z96.652 Presence of left artificial knee joint
CPT/HCPCS: 99213; 73560

== ENCOUNTER 2023-07-11 15:51 | Outpatient (CLI) | payer MEDICARE, OTHER, SELFPAY ==
--- NOTE | 2023-07-11 15:45 | RT.EKG_ITS ---
APPROVED REPORT Exam: Resting ECG Reason for Exam: chest discomfort Patient Location: O HR:60 bpm ECG Measurements Heart Rate 60 AXIS CO 155 P 73 QRSd 92 QRS 48 QT 396 T 62 QTc 396 Conclusion Sinus rhythm...normal P axis, V-rate 50- 99 Left ventricular hypertrophy...multiple voltage criteria
== END 2023-07-11 15:52 | disposition home or self-care (01) ==
LOC: DI.CM 15:52
PROVIDERS: PCP Nurse Practitioner Family; Visit Provider Physician Assistant
DX: R07.89 Other chest pain (principal)
CPT/HCPCS: 93010

== ENCOUNTER 2023-07-11 16:30 | Emergency (ER) | payer MEDICARE, OTHER, SELFPAY ==
[2023-07-11] VITALS (22 sets, daily range): BP systolic 149–192; BP diastolic 73–121; PULSE 58–87; RESP 15–24; O2SAT 95–100
--- NOTE | 2023-07-11 16:30 | RT.EKG_ITS ---
APPROVED REPORT Exam: Resting ECG Reason for Exam: Chest pain Patient Location: E HR:72 bpm ECG Measurements Heart Rate 72 AXIS MN 160 P 66 QRSd 86 QRS 27 QT 392 T 69 QTc 429 Conclusion Sinus rhythm Rate 72 normal axis LVH no acute ischemic change
[2023-07-11 17:21] LABS: Abs Immature Grans 0.01 10^3/uL (0.0-0.06); Absolute Basophil Count 0.03 10^3/uL (0.0-0.2); Absolute Eosinophil Count 0.06 10^3/uL (0.0-0.7); Absolute Monocyte Count 0.59 10^3/uL (0.1-0.8); Absolute Neutrophil Count 2.98 10^3/uL (1.2-6.7); Basophils % 0.6; Eosinophils % 1.2; HCT 42.9 % (40.0-50.0); HGB 14.7 g/dL (13.5-17.5); Immature Grans % 0.2; MCH 30.9 pg (27.0-33.0); MCHC 34.3 % (32.0-36.0); MCV 90 fL (80-95); MPV 10.1 fL (8.0-11.0); Monocytes % 11.4; Neutrophils % 57.6; Platelet Count 229 10^3/uL (130-400); RBC 4.76 10^6/uL (4.36-5.78); RDW-SD 39.6 fL; WBC 5.17 10^3/uL (4.4-10.8)
[2023-07-11] MEDS: Aspirin 81 MG CHEW 324 MG CH (17:25)
--- NOTE | 2023-07-11 17:37 | ED.GENADUL_ITS ---
Discharge Plan Disposition Patient Disposition: Home Condition: Stable Discharge Details Clinical Impression: Chest pain of uncertain etiology, Hypertension Primary Care Provider: Jeannie Wang ED Provider: Jose Batres Home Meds and New Rx's Prescriptions: New amlodipine 2.5 mg tablet 2.5 mg PO DAILY Qty: 30 0RF Continued omega-3 fatty acids [Fish Oil Concentrate] 1,000 mg capsule 1,000 mg PO DAILY multivitamin Tablet 1 tab PO DAILY Discharge Instructions Instructions: Amlodipine (By mouth), Chest Pain (ED), Hypertension (ED) Additional Instructions: You were seen in the emergency department for your chest pain since last night at 11:30 PM, we performed laboratory studies that ruled out an acute coronary syndrome or heart attack, we performed laboratory studies that ruled out a blood clot of your lungs. You have no warning signs of chest pain and low risk on heart score, this is our standard risk stratification tool and it deemed it reasonable to pursue stress test and echocardiogram by outpatient study. You do have uncontrolled hypertension and I did prescribe the lowest dose of amlodipine and antihypertensive medication sent to [facility] in [place]. Please take this until you can see your primary care provider and be switched to a more preferred antihypertensive agent. Please return to the emergency department should you experience any worsening chest pain especially with wearing symptoms like sweating, dizziness, passing ou t, worse with exertion and shortness of breath or any skin changes where he appears ashen in appearance. Referrals: [facility] [Provider Group] (LOW Heart Score- stress/ECHO outpatient) Jeannie Wang NP [Primary Care Provider] - Medical Decision Making Assessment: 72-year-old male with no acute comorbid chronic conditions presents with chest pain since last night at 2330 that awoke him from bed. He states it is sharp and intermittent in nature and has no warning symptoms of dizziness, visual changes, diaphoresis, exertional onset. His father has cardiac history and from [place] at age 61, the patient has received an echocardiogram in the remote past or worn a heart monitor, he is confused over which. He has not had a stress test. He is hypertensive on arrival. Diagnostic studies of D-dimer shows a negative result, cardiac troponin is negative with reliable greater than 6-hour onset, he has no leukocytosis and no electrolyte abnormalities, EKG shows no acute abnormalities. Chest x-ray is normal. Findings are not consistent with acute coronary syndrome, aortic dissection, AAA, pneumonia, rib fracture or trauma, the patient has possible costochondritis or perhaps some other musculoskeletal chest pain or pleurisy. I do recommend that he start an antihypertensive and I did prescribe him amlodipine for ease of discontinuation and switching to a more desired agent once he sees his primary care provider. His heart score is low and it is reasonable to pursue cardiology consult on an outpatient basis. I discussed these findings with the patient and patient's and he verbalized understanding of the plan and return to ED criteria. Disposition of Chest Pain of Uncertain Cause Medical Records Medical records reviewed: Yes I reviewed the patient's medical records. Imaging Data Radiologic Study: My impression: No acute pathology seen on chest x-ray, no focal consolidation, no interstitial edema, no pneumothorax, no gross cardiomegaly. Lab Data Labs: Laboratory Tests Range/Units 07/11/23 16:55 WBC (4.4-10.8) 10^3/uL 5.17 RBC (4.36-5.78) 10^6/uL 4.76 Hgb (13.5-17.5) g/dL 14.7 Hct (40.0-50.0) % 42.9 MCV (80-95) fL 90 MCH (27.0-33.0) pg 30.9 MCHC (32.0-36.0) % 34.3 RDW (11.8-14.1) % 12.0 Plt Count (130-400) 10^3/uL 229 MPV (8.0-11.0) fL 10.1 Immature Gran % 0.2 Neutrophils % 57.6 Lymphocytes % 29.0 Monocytes % 11.4 Eosinophils % 1.2 Basophils % 0.6 Nucleated RBC % (0.0-0.3) % 0.0 Absolute Neutrophils (1.2-6.7) 10^3/uL 2.98 Absolute Lymphocytes (1.2-3.4) 10^3/uL 1.50 Absolute Monocytes (0.1-0.8) 10^3/uL 0.59 Absolute Eosinophils (0.0-0.7) 10^3/uL 0.06 Absolute Basophils (0.0-0.2) 10^3/uL 0.03 D-Dimer (<500) ng/mlFEU 477 Sodium (136-145) mmol/L 138 Potassium (3.5-5.1) mmol/L 3.8 Chloride (98-107) mmol/L 102 Carbon Dioxide (21.0-32.0) mmol/L 28.7 Anion Gap (3-11) mmol/L 7.3 BUN (7-18) mg/dL 19 H Creatinine (0.70-1.30) mg/dL 1.0 Est GFR (CKD-EPI 2020) (mL/min/1.73m2) 80.97 Glucose (74-106) mg/dL 117 H Calcium (8.5-10.1) mg/dL 9.8 Magnesium (1.8-2.4) mg/dL 2.0 Total Bilirubin (0.2-1.0) mg/dL 0.7 AST (15-37) U/L 18 ALT (16-63) U/L 32 Alkaline Phosphatase (46-116) U/L 78 Troponin I (<or=60) ng/L < 50 NT-Pro-B Natriuret Pep (<300) pg/mL 66 Total Protein (6.4-8.2) g/dL 7.7 Albumin (3.4-5.0) g/dL 3.9 HPI General Date/Time Provider Initiated Documentation: 07/11/23 17:08 . HPI Narrative: 72-year-old male presents to the emergency department by POV/ambulating with his , he was seen at urgent care earlier today for chest pain that he has been having since 2330 last night, it came on and woke him from sleep. He states it is sharp and left-sided, does not radiate to his neck, jaw or left arm, he denies dizziness or diaphoresis with this pain, denies syncope, denies hemoptysis or shortness of breath, is not exacerbated by exercise, he denies any known cardiac history but does have family history of his father passing away from a massive [place] at age 61. He states he is otherwise fairly healthy and only takes a multivitamin and omega-3 supplement. Related Data Home Medications Medication Instructions Recorded Confirmed multivitamin 1 tab PO DAILY 09/23/19 07/11/23 omega-3 fatty acids 1,000 mg 1,000 mg PO DAILY 09/23/19 07/11/23 capsule (Fish Oil Concentrate) amlodipine 2.5 mg tablet 2.5 mg PO DAILY #30 tabs 07/11/23 Previous Rx's Medication Instructions Recorded amlodipine 2.5 mg tablet 2.5 mg PO DAILY #30 tabs 07/11/23 Allergies Allergy/AdvReac Type Severity Reaction Status Date / Time No Known Allergies Allergy Verified 07/11/23 16:39 General Stated Complaint: Chest Pain JAZ: 3 Review of Systems All systems reviewed & are unremarkable except as noted in HPI and below PFSH All Active Problems (Updated 07/11/23 @ 18:14 by HOWARD Caraballo) Hypertension (Chronic) Chest pain of uncertain etiology (Acute) Tinnitus, bilateral (Acute) Iliotibial band syndrome, left leg (Acute) Cardiac murmur (Acute) Restless leg (Acute) Medical History (Updated 07/11/23 @ 18:14 by HOWARD Caraballo) No pertinent past medical history Diverticulosis of colon without diverticulitis Surgical History S/P vasectomy 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 Paternal Grandfather , AGE 70 Heart disease Stroke Maternal Grandmother , AGE 80 Diabetes Essential hypertension Heart disease Cancer Paternal Grandmother , age 82 Heart disease Cancer Daughter No problems noted. Daughter No problems noted. Social History (Updated 04/15/23 @ 09:52 by Naheed Dominguez) Smoking/Tobacco Use Status: Never Second Hand Exposure: Yes Smoking risk assessment performed?: Yes Alcohol Intake: current Alcohol Intake frequency: a few times a week Alcohol type: beer Drug use: Never Substance use type: former substance user Details: alcohol: t-3, 2 beers Caregiver/Support person: No Household members: spouse Housing: house Communication Needs: None Do you need help understanding health information?: Never Pets and animals: No Sexually active: Yes Do you think of yourself as: straight/heterosexual Current gender identity: male What is your relationship status?: How often do you talk on the phone with friends or family?: three or more times per week How often do you get together with friends or relatives?: three or more times per week How often do you attend latter-day or evangelical services?: 1-3 times per year Do you belong to any clubs or organized social groups?: no Panel score (0-1 are the most socially isolated patients): 2 What type of physical activity do you participate in: walking and other Details: Pickle Ball Duration: 60-90 minutes/day Frequency: 3-4 times per week Cinthia/Gnosticist: No preference Special cinthia needs: No Seatbelt use: always Helmet use: Yes Helmet use: always Drive intox 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 Do you feel safe at home: Yes Do you feel safe in your relationship?: Yes Exam Const General: cooperative, healthy appearing and no acute distress Orientation: alert, awake and oriented x3 HENMT Head: normocephalic and atraumatic Mouth: moist mucous membranes Eyes General: appearance normal, both eyes and all related structures Visual [place]: normal visual [place] by confrontation Pupils: PERRL EOM: EOM intact bilaterally Neck Neck: trachea midline, supple and no JVD Chest Chest: normal palpation of entire chest wall, no crepitus and no localized rib tenderness Resp Effort & Inspection: normal respiratory effort, able to speak in complete sentences, no cough and no respiratory distress Cardio Palpation: thrill Rhythm: regular rhythm Heart Sounds: S1 normal and S2 normal Bruits: no carotid bruits GI Palpation: soft and no pulsatile masses Neuro General: gait normal, tone normal, moves all extremities, normal light touch, pain and propioception, no focal motor deficits, CN's II-XI intact bilaterally, not confused and not obtunded Gait: normal gait Course Vital Signs Vital signs: Vital Signs Pulse 81 07/11/23 16:33 Respiratory Rate 18 07/11/23 16:33 Blood Pressure 185/121 H 07/11/23 16:33 Pulse Oximetry 99 07/11/23 16:33 Pulse 81 07/11/23 16:33 Respiratory Rate 21 07/11/23 16:50 Respiratory Effort Normal 07/11/23 16:50 Respiratory Depth Normal 07/11/23 16:50 Respiratory Pattern Normal 07/11/23 16:50 Blood Pressure 185/121 H 07/11/23 16:33 Pulse Oximetry 99 07/11/23 16:33 Pain Level 5 07/11/23 16:50 Lab/Test Results Lab/Test Results: Laboratory Tests Range/Units 07/11/23 16:55 WBC (4.4-10.8) 10^3/uL 5.17 RBC (4.36-5.78) 10^6/uL 4.76 Hgb (13.5-17.5) g/dL 14.7 Hct (40.0-50.0) % 42.9 MCV (80-95) fL 90 MCH (27.0-33.0) pg 30.9 MCHC (32.0-36.0) % 34.3 RDW (11.8-14.1) % 12.0 Plt Count (130-400) 10^3/uL 229 MPV (8.0-11.0) fL 10.1 Immature Gran % 0.2 Neutrophils % 57.6 Lymphocytes % 29.0 Monocytes % 11.4 Eosinophils % 1.2 Basophils % 0.6 Nucleated RBC % (0.0-0.3) % 0.0 Absolute Neutrophils (1.2-6.7) 10^3/uL 2.98 Absolute Lymphocytes (1.2-3.4) 10^3/uL 1.50 Absolute Monocytes (0.1-0.8) 10^3/uL 0.59 Absolute Eosinophils (0.0-0.7) 10^3/uL 0.06 Absolute Basophils (0.0-0.2) 10^3/uL 0.03 PAWSS Have you Been Recently Intoxicated or Drunk Within the Last 30 days?: No Have you Ever Experienced Previous Episodes of Alcohol Withdrawal?: No Have you ever Experienced Withdrawal Seizures?: No Have you ever Experienced Delirium Tremens(DT)s?: No Have you ever undergone Alcohol Rehabilitation Treatment (i.e, inpt ot outpatient treatment programs)?: No Have you ever Experienced Blackouts?: No Have you ever Combined Alcohol with other Downers within the last 90 days?: No Have you ever Combined Alcohol with any other Substance of Abuse during the last 90 days?: No Result: 0
[2023-07-11 17:47] LABS: ALT 32 U/L (16-63); AST 18 U/L (15-37); Albumin 3.9 g/dL (3.4-5.0); Alkaline Phosphatase 78 U/L (46-116); Anion Gap 7.3 mmol/L (3-11); BUN 19 mg/dL (7-18); Bilirubin, Total 0.7 mg/dL (0.2-1.0); CO2 28.7 mmol/L (21.0-32.0); Calcium 9.8 mg/dL (8.5-10.1); Chloride 102 mmol/L (98-107); Estimated GFR 80.97 (mL/min/1.73m2); Glucose 117 mg/dL (74-106); NT-proBNP 66 pg/mL (<300); Potassium 3.8 mmol/L (3.5-5.1); Sodium 138 mmol/L (136-145); Total Protein 7.7 g/dL (6.4-8.2); Troponin I < 50 ng/L (<or=60)
[2023-07-11 17:54] LABS: D-Dimer 477 ng/mlFEU (<500)
--- NOTE | 2023-07-11 18:00 | DI.RAD_ITS ---
Exam(s) XR CHEST 2V PA LATERAL EXAM: XR CHEST 2V PA LATERAL CLINICAL HISTORY: chest pain. TECHNIQUE: 2D digital imaging was performed. COMPARISON: No exams were available for comparison FINDINGS: 2 views: Heart size is normal. The mediastinum is not widened. Lungs are clear. No infiltrates nor pleural effusions. IMPRESSION: No acute pulmonary findings. DATA REPOSITORY: RADIATION DOSE DELIVERED:
== END 2023-07-11 19:02 | disposition home or self-care (01) ==
PROVIDERS: Emergency Provider Physician Assistant; PCP Nurse Practitioner Family
DX: R07.9 Chest pain, unspecified (principal); R06.02 Shortness of breath; I10 Essential (primary) hypertension; Z84.89 Family history of other specified conditions
CPT/HCPCS: 80053; 93005; 99284; 71046; 83735; 83880; 84484; 85025; 85379; 93010

== ENCOUNTER → 2023-07-23 00:41 | Outpatient (CLI) | payer MEDICARE, OTHER, SELFPAY ==
--- NOTE | 2023-07-23 06:00 | ETT_ITS ---
APPROVED REPORT Exam: Exercise Treadmill Patient Location: Out-Patient Room/Bed: Stress Nurse: Jannette Raya RN Ordering Provider:LUCY OLIVERA CANDDIO, Contact Number: [phone] BMI: 22.78 Baseline Rhythm: Sinus Rhythm Comment: Occasional PVC's Indications: Chest pain, Medical History Medical History: Hx of murmur, diverticulosis, Left total knee replacement Cardiac Medications: Amlodipine Allergies: NKDA Cardiac Risk Factors: Family hx, HTN Previous Cardiac Procedures: None Pretest Chest Pain Characteristics: None Exercise History: Physically active Physical Disabilities: None Lung Sounds: Clear to auscultation Heart Sounds: Regular Stress Test Details Test: Exercise stress testing was performed using a Reg protocol. Rest Stress HR Resting HR Supine: 64 bpm Max Heart Rate (APMHR): 150 bpm Resting HR Standin bpm Target HR (85% APMHR): 128 bpm Max HR Achieved: 132 bpm % of APMHR: 88 Recovery HR: 82 bpm HR response to stress: Normal HR response to stress BP Resting BP Supine: 148/78 mmHg Resting BP Standin/72 mmHg Max BP: 192/74 mmHg Recovery BP: 152/80 mmHg BP response to stress: Normal blood pressure response to stress. ECG Resting ECG: Sinus Rhythm Ectopy: Occasional PVC's Stress ECG: Sinus Tachycardia ST Change: No significant ST segment changes noted Arrhythmia: Occasional PVC's, occasional couplets, occasional PAC's, triplet Recovery ECG: Sinus Rhythm Recovery ST Change: No significant ST segment changes noted Recovery Arrhythmia: Occasional PAC's, occasional PVC's Clinical Reason for Termination: Target HR Achieved Stress Symptoms: None Exercise duration: 08 min59 sec Highest Stage Reached: Stage 3: 3.4 mph at 14% grade. Exercise capacity: 10.16 METs Angina Score: None Mcclain Treadmill Score: 8.3 Rate Pressure Product: 87040 Stress ECG Conclusion 1. Resting electrocardiogram was within normal limits 2. Patient exercised on the Reg protocol and completed a workload of 10.16 METS 3. Normal heart rate and blood pressure response to exercise. Peak heart rate achieved was 88% of pr edicted for age 4. There was no electrocardiographic evidence of myocardial ischemia 5. There were occasional premature ventricular contractions, rare premature atrial contractions Mcclain Treadmill Score is 8.3 which is Low risk. Stress Test Summary STAGE Time (mins) Speed (mph) Grade (%) HR BP SpO2 SYMPTOMS METS Supine 64 148/78 96 Standing 63 138/72 96 1 3 1.7 10 96 134/72 4.5 2 6 2.5 12 111 178/70 93 7 3 9 3.4 14 129 190/90 10 1 min recovery 110 192/74 3 min recovery 89 152/72 99 6 min recovery 82 152/80
== END ==
PROVIDERS: PCP Nurse Practitioner Family; Visit Provider Nurse Practitioner Family
DX: R07.9 Chest pain, unspecified (principal)
CPT/HCPCS: 93016; 93018; 93017

== ENCOUNTER → 2023-09-19 02:13 | Outpatient (CLI) | payer MEDICARE, OTHER, SELFPAY ==
--- NOTE | 2023-09-19 06:30 | DI.US_ITS ---
APPROVED REPORT EXAM: Comprehensive 2D, Doppler, and color-flow Echocardiogram Patient Location: Out-Patient Grocery Associate: Luis Colindres RDCS (AE) Indications: chest pain, murmur Other Information Study Quality: Good Conclusion 1.Normal chamber sizes. 2.Normal LV function,EF 60-65%.Normal RV function. 3.Anatomically normal valves.Mild to moderate MR.Mild TR without pulmonary hypertension. 4.No intracardiac shunt 5.No pericardial effusion. Wall motion Left Ventricle The left ventricle is normal size. The left ventricular systolic function is normal. The left ventric ular ejection fraction is within the normal range. There is normal left ventricular wall thickness. T here is normal LV segmental wall motion. There is no ventricular septal defect visualized. LVEF is 55 -58%. Right Ventricle The right ventricle is normal size. The right ventricular systolic function is normal. The RVSP is 29 .1 mmHg. Atria The left atrium size is normal. The right atrium size is normal. The interatrial septum is intact wit h no evidence for an atrial septal defect. Aortic Valve The aortic valve is normal in structure. Aortic valve is trileaflet. There is no aortic valvular sten osis. No aortic regurgitation is present. Mitral Valve The mitral valve is normal in structure. No evidence of mitral valve stenosis. Mild to moderate giselle l regurgitation. Tricuspid Valve The tricuspid valve is normal in structure. There is no tricuspid valve stenosis. Moderate tricuspid regurgitation. Pulmonic Valve The pulmonary valve is normal in structure. There is no pulmonic valvular stenosis. Trace pulmonic re gurgitation. Great Vessels The aortic root is normal in size. The ascending aorta is mildly dilated. Aortic arch is normal in ca liber. IVC is normal in size and collapses >50% with inspiration. Pericardium There is no pericardial effusion. 2D Dimensions IVSD d PLAX 0.82 cm M: 0.6-1.2 Ao Root d 3.27 cm M: 3.1 - 3.7 LVPW d PLAX 0.79 cm M: 0.6 - 1.2 Ao Asc Diam d 3.63 cm M: 2.6 - 3.4 LVID d PLAX 4.83 cm M: 4.2 - 5.8 LVDs 3.35 cm M: 2.5 - 4.0 LV EF Teichholz 58.1 % FS 30.69 % LV EDV (Teich) 109.0 mL LV ESV (Teich) 45.7 mL Stroke Vol Index (Teich) 31.84 M-Mode TAPSE 2.41 cm (M/F) >1.7 Auto EF LV EDV A4C 121.7 mL LV EDV A2C 140.3 mL LV EDV BP 128.2 mL LV ESV A4C 55.1 mL LV ESV A2C 61.3 mL LV ESV BP 57.4 mL LVEF(%) A4C 54.8 % LVEF(%) A2C 56.3 % LVEF(%) BP 55.3 % LV SV A4C 66.6 ml LV SV A2C 79.0 ml LV SV BP 70.9 ml LV CO A4C 4.2 L/min LV CO A2C 4.9 L/min LV CO BP 4.6 L/min HR A4C 63.71 BPM HR A2C 62.50 BPM LV EDV Index (BP) LA Volume LA Length A4C 4.7 cm LA Length A2C 4.5 cm LA Area A4C s 9.88 cm2 LA Area A2C s 12.16 cm2 LA Vol A4C A-L 17.81 mL LA Vol A2C A-L 27.60 mL LA Vol Biplane A-L 22.4 mL LA Vol/BSA A4C A-L LA Vol/BSA A2C A-L LA Vol/BSA BP A-L 11.3 mL/m2 LA Vol A4C MOD 17.2 mL LA Vol A2C MOD 24.5 mL LA Vol BP MOD 20.0 mL RA Volume RA Area A4C 11.0 cm2 RA ESV A4C (A-L) 26.9mL RA Vol/BSA A4C A-L RA Length A4C 3.8 cm RA ESV A4C (MOD) 24.7mL LV Diastology MV E' medial 0.071 (>0.07 m/s) MV E Vmax 0.63 (0.4-1.3 m/s) MV E/E' MED 8.92 (<14) MV A Vmax 0.65 (0.4-1.3 m/s) MV E' lateral 0.076 (>0.1 m/s) E/A Ratio 1.0 MV E/E' LAT 8.36 (<14) MV E' Average 0.073 m/s MV E/E'(average) 8.63 Aortic Valve AoV Vmax 1.09 m/s LVOT Vmax 0.97 m/s AoV Peak Grad 4.7 mmHg LVOT Peak Grad 3.7 mmHg AoV Area (Vmax) 3.21 cm2 LVOT VTI 0.231 m AoV VTI 0.270 m LVOT Mean Grad 1.8 mmHg AoV Mean Donal. 0.78 m/s LVOT SV 83.21 mL AoV Mean Grad 2.8 mmHg LVOT Diam s 2.10 cm AoV Area (VTI) 3.08 cm2 Velocity Ratio 0.89 Mitral Valve MV DT 180 (160-240 msec) MV Vmax TIPS 0.66 m/s MV Mean Grad 0.6 (<2mmHg) MV VTI 0.288 m Pulmonary Valve PV Vmax 0.93 (0.5-1.5 m/s) RVOT Vmax 0.73 m/s PV Peak Grad 3.5 mmHg RVOT Peak Gr. 2.1 mmHg PV Mean Donal 0.63 m/s RVOT VTI 0.157 m PV Mean Grad 1.8 mmHg RVOT Mean Gr. 1.3 mmHg Tricuspid Valve RA Pressure 3.00 mmHg TR Vmax 2.56 m/s TR Peak Grad 26.1 mmHg RVSP (TR) 29.1 mmHg
== END ==
PROVIDERS: PCP Nurse Practitioner Family; Visit Provider Nurse Practitioner Family
DX: R01.1 Cardiac murmur, unspecified (principal); R07.9 Chest pain, unspecified
CPT/HCPCS: 93306

== ENCOUNTER 2023-10-08 11:24 | Outpatient (CLI) | payer MEDICARE, OTHER, SELFPAY ==
[2023-10-08 09:41] LABS: HCT 43.5 % (40.0-50.0); MCH 30.9 pg (27.0-33.0); MCHC 34.5 % (32.0-36.0); MCV 90 fL (80-95); Platelet Count 204 10^3/uL (130-400); RBC 4.86 10^6/uL (4.36-5.78); RDW 11.9 % (11.8-14.1); RDW-SD 38.8 fL; WBC 3.71 10^3/uL (4.4-10.8)
[2023-10-08 10:14] LABS: ALT 27 U/L (16-63); AST 17 U/L (15-37); Albumin 3.7 g/dL (3.4-5.0); Alkaline Phosphatase 63 U/L (46-116); BUN 17 mg/dL (7-18); Bilirubin, Total 0.8 mg/dL (0.2-1.0); Calculated LDL 80 mg/dL (<100); Chloride 105 mmol/L (98-107); Cholesterol 156 mg/dL (<200); Estimated GFR 80.97 (mL/min/1.73m2); Glucose 105 mg/dL (74-106); HDL Cholesterol 64 mg/dL (40-60); Potassium 4.1 mmol/L (3.5-5.1); Sodium 139 mmol/L (136-145); Total Protein 7.6 g/dL (6.4-8.2); Triglyceride 61 mg/dL (<150)
[2023-10-08 19:07] LABS: PSA, Screening 0.8 ng/mL (<=6.5)
== END 2023-10-08 11:25 | disposition home or self-care (01) ==
LOC: LBO 11:26
PROVIDERS: PCP Nurse Practitioner Family; Visit Provider Nurse Practitioner Family
DX: G25.81 Restless legs syndrome (principal); M76.32 Iliotibial band syndrome, left leg; R01.1 Cardiac murmur, unspecified; Z12.5 Encounter for screening for malignant neoplasm of prostate; E78.00 Pure hypercholesterolemia, unspecified
CPT/HCPCS: 36415; 80053; 80061; 84153; 85027

== ENCOUNTER 2024-12-03 11:52 | Outpatient (CLI) | payer MEDICARE, OTHER, SELFPAY ==
[2024-12-03 09:22] LABS: HCT 43.5 % (40.0-50.0); HGB 14.7 g/dL (13.5-17.5); MCH 30.4 pg (27.0-33.0); MCHC 33.8 % (32.0-36.0); MCV 90 fL (80-95); Platelet Count 189 10^3/uL (130-400); RBC 4.84 10^6/uL (4.36-5.78); RDW 11.6 % (11.8-14.1); RDW-SD 38.1 fL; WBC 2.83 10^3/uL (4.4-10.8)
[2024-12-03 09:53] LABS: ALT 48 U/L (16-63); AST 30 U/L (15-37); Albumin 3.8 g/dL (3.4-5.0); Alkaline Phosphatase 67 U/L (46-116); Anion Gap 5.1 mmol/L (3-11); BUN 16 mg/dL (7-18); Bilirubin, Total 1.2 mg/dL (0.2-1.0); CO2 29.9 mmol/L (21.0-32.0); Calculated LDL 57 mg/dL (<100); Chloride 106 mmol/L (98-107); Cholesterol 123 mg/dL (<200); Estimated GFR 79.97 (mL/min/1.73m2); Glucose 106 mg/dL (74-106); HDL Cholesterol 51 mg/dL (>or=40); Potassium 4.2 mmol/L (3.5-5.1); Sodium 141 mmol/L (136-145); Total Protein 7.4 g/dL (6.4-8.2); Triglyceride 75 mg/dL (<150)
== END 2024-12-03 11:53 | disposition home or self-care (01) ==
LOC: LBO 11:56
PROVIDERS: PCP Nurse Practitioner Family; Visit Provider Nurse Practitioner Family
DX: E78.5 Hyperlipidemia, unspecified (principal); R03.0 Elevated blood-pressure reading, without diagnosis of hypertension; G25.81 Restless legs syndrome
CPT/HCPCS: 36415; 80053; 80061; 85027